=== PATIENT | male | born 1980 | race Caucasian/White ===

== ENCOUNTER 2019-12-17 23:46 | Emergency (ER) | payer OTHER ==
[~2019-12-17] VITALS: Ht 182.9 cm; Wt 98.9 kg
[2019-12-18 00:38] LABS: ABSOLUTE NEUTROPHILS 4.7 thou/uL (1.4-8.2); BASOPHILS 0.3 % (0.0-2.0); EOSINOPHILS 2.6 % (0.0-3.0); HEMATOCRIT 43.1 % (42.0-52.0); HEMOGLOBIN 14.7 gm/dL (14.0-18.0); LYMPHOCYTES 25.2 % (24.0-44.0); MCH 28.2 pg (26.0-34.0); MCHC 34.1 g/dL (28.0-37.0); MCV 82.8 fL (80.0-100.0); MONOCYTES 11.3 % (1.0-8.0); PLATELET COUNT 305 thou/uL (150-400); POLYS 60.6 % (36.0-66.0); RBC 5.21 mil/uL (4.50-6.00); WBC 7.8 thou/uL (4.0-11.0)
[2019-12-18 00:41] LABS: CALCIUM 8.4 mg/dL (8.5-10.1); CREATININE 1.4 mg/dL (0.7-1.3)
[2019-12-18 00:47] LABS: AMP/METHAMP POSITIVE (Negative); BARBITURATES Negative (Negative); BENZODIAZEPINES Negative (Negative); COCAINE Negative (Negative); METHADONE Negative (Negative); OPIATES Negative (Negative); PCP Negative (Negative)
[2019-12-18 00:56] LABS: INR 1.1; PROTIME 11.6 Seconds (9.3-11.4)
[2019-12-18] MEDS ORDERED: TRAMADOL 50 MG50 MG PO (02:33)
[2019-12-18] MEDS ORDERED: ANTIBIOTIC28.4 GM TOP (02:33)
[2019-12-18] MEDS ORDERED: KEFLEX500 M1 PO (02:33)
[2019-12-18 02:57] VITALS: BP 123/86
== END 2019-12-18 03:12 | disposition home or self-care (01) ==
LOC: ER 23:46
PROVIDERS: Emergency Medicine Emergency Medical Services
DX: S81.802A Unspecified open wound, left lower leg, initial encounter (principal); F17.210 Nicotine dependence, cigarettes, uncomplicated; Z88.0 Allergy status to penicillin; W34.09XA Accidental discharge from other specified firearms, initial encounter; Y93.01 Activity, walking, marching and hiking; Y92.098 Other place in other non-institutional residence as the place of occurrence of the external cause; Y99.8 Other external cause status